=== PATIENT | female | born 1930 | race African-American/Black ===

== ENCOUNTER 2017-07-29 09:53 | Day surgery (SDC) | payer MEDICARE, OTHER ==
--- NOTE | 2017-07-28 22:02 | Pre-Procedure Note/Attestation ---
Pre-Procedure Note/Attestation Complete Prior to Procedure Planned Procedure: right - Removal of cataract and placement of intraocular lens, right eye Procedure Narrative: Removal of cataract and placement of intraocular lens, right eye Indications for Procedure Pre-Operative Diagnosis: Cataract, combined, right eye Attestation I attest that I discussed the nature of the procedure; its benefits; risks and complications; and alternatives (and the risks and benefits of such alternatives ), prior to the procedure, with the patient (or the patient's legal financial services representative). I attest that, if there was a reasonable possibility of needing a blood transfusion, the patient (or the patient's legal financial services representative) was given the [place] Department of Health Services standardized written summary, pursuant to the [employer] Blood Safety Act ([place] Health and Safety Code # 1645, as amended). I attest that I re-evaluated the patient just prior to the surgery and that there has been no change in the patient's H&P, except as documented below: Chang Ramirez MD Jul 28, 2017 22:02
[~2017-07-29] VITALS: Ht 167.6 cm; Wt 77.1 kg
[2017-07-29] VITALS (8 sets, daily range): BP systolic 119–156; BP diastolic 70–79
[~2017-07-29 09:53] MED LIST: BSS 15ml BTL ONE; BSS 500ml btl ONE; Bupivacaine 0.75% 30ml vial INJ ONE; Carbachol 0.01% Op Soln 1.5ml vial ONE; Dexamethasone 4mg/ml vial ONE; EPINEPHrine 1mg/1ml Amp ONE; Fluorescein Strips ONE; Lidocaine 1% MPF 10mg/ml 5ml ONE; Lidocaine 4% Amp ONE; Maxitrol Opth Oint 3.5gm ONE; Povidone-Iodine 5% opth solution ONE; Pred Forte 1% Opth Susp 1ml ONE; Sodium Hyaluronate 10 mg/ml 0.85ml ONE; Tetracaine 0.5% Opth 4ml Soln ONE; Timolol 0.5% Op Soln 2.5ml ONE
[2017-07-29] MEDS ORDERED: DiphenhydrAMINE 50mg/ml Inj ONE (11:30)
[2017-07-29] MEDS ORDERED: VITAMIN B COMP1 EAC2 ORAL (11:37)
[2017-07-29] MEDS ORDERED: DARZALEX100 MG/5 M IV (11:37)
[2017-07-29] MEDS ORDERED: AVALIDE 150-121 EACH ORAL (11:37)
[2017-07-29] MEDS ORDERED: VITAMIN B12-FO1 EAC1 PO (11:37)
[2017-07-29] MEDS ORDERED: ACYCLOVIR400 MG ORAL (11:37)
[2017-07-29] MEDS ORDERED: VITAMIN D400 INTLU ORAL (11:37)
[2017-07-29] MEDS ORDERED: XARELTO20 MG ORAL (11:37)
[2017-07-29] MEDS ORDERED: DEXAMETHASONE4 M1 PO (11:37)
[2017-07-29] MEDS: Akten 3.5% 1ml Btl RIGHT EYE SCH ×3 (12:17→12:35)
[2017-07-29] MEDS: Tropicamide 1% Opth 15ml Soln RIGHT EYE SCH ×3 (12:18→12:34)
[2017-07-29] MEDS: Cyclopentolate 1% Opth Sol 2ml RIGHT EYE SCH ×3 (12:18→12:34)
[2017-07-29] MEDS: Phenylephrine 10% Opth Soln 5ml RIGHT EYE SCH ×3 (12:18→12:34)
[2017-07-29] MEDS: Tobradex Opth Susp 2.5ml RIGHT EYE SCH ×3 (12:18→12:35)
--- NOTE | 2017-07-29 12:27 | Anethesia Preoperative Eval ---
Anesthesia Pre-op PMH/ROS General Date of Evaluation: Jul 29, 2017 Anesthesiologist: [place] ASA Score: ASA 3 Mallampati Score Class I : Soft palate, uvula, fauces, pillars visible Class II: Soft palate, uvula, fauces visible Class III: Soft palate, base of uvula visible Class IV: Only hard plate visible Mallampati Classification: Class III Surgeon: Ashley Diagnosis: Right cataract Surgical Procedure: Right cataract extraction with IOL Anesthesia History: none Family History: no anesthesia problems Allergies: Coded Allergies: BORTEZOMIB (Verified Allergy, Severe, rash all over the body , 07/29/17) PENICILLINS (Verified Allergy, Intermediate, swelling hands and feet , ) CIPROFLOXACIN (Verified Allergy, Unknown, 07/28/17) CLINDAMYCIN (Verified Allergy, Unknown, 07/28/17) SULFA (SULFONAMIDE ANTIBIOTICS) (Verified Allergy, Unknown, unknown , 07/29) Medications: see eMAR Past Medical History Cardiovascular: Reports: HTN, Denies: CAD, VT, valve dz, arrhythmia, other Pulmonary: Denies: asthma, COPD, ROLANDO, other Gastrointestinal/Genitourinary: Denies: GERD, CRI, ESRD, other Neurologic/Psychiatric: Denies: dementia, CVA, depression/anxiety, TIA, other Endocrine: Denies: DM, hypothyroidism, steroids, other HEENT: Denies: cataract (L), cataract (R), glaucoma, [place] (L), [place] (R), other Hematology/Immune: Reports: anemia - chronic, other - multiple myeloma, Denies: DVT, bleeding disorder Musculoskeletal/Integumentary: Denies: OA, RA, DJD, DDD, edema, other PSxH Narrative: T&A, left salphingooophorectomy Anesthesia Pre-op Phys. Exam Physician Exam Last Vital Signs Date Time Temp Pulse Resp B/P (MAP) Pulse Ox O2 Delivery O2 Flow Rate FiO2 07/29/17 10:27 97.9 78 18 120/70 97 Room Air Constitutional: NAD Cardiovascular: RRR Respiratory: CTA Airway Exam Mallampati Score: Class III MO: limited ROM: full Teeth: intact Anesthesia Pre-op A/P Labs see chart Studies Pre-op Studies: EKG - sr Risk Assessment & Plan Assessment: ASA III Plan: MAC Status Change Before Surgery: No Pre-Antibiotics Drug: N/A LAGOS,LEXX M.D. Jul 29, 2017 12:27
[2017-07-29] MEDS ORDERED: Midazolam 2mg/2ml Inj ONE (13:00)
[2017-07-29] MEDS ORDERED: NS Irrig 1000ml ONE (13:00)
[2017-07-29] MEDS ORDERED: fentaNYL 100 mcg/2 mL IV ONE (13:00)
[2017-07-29] MEDS ORDERED: Sterile Water Irrig 1000ml IRRIG ONE (13:00)
--- NOTE | 2017-07-29 13:27 | Immediate Post-Op Evaluation ---
Immediate Post-Op Evalulation Immediate Post-Op Evalulation Procedure: Right cataract extraction with IOL Date of Evaluation: Jul 29, 2017 Time of Evaluation: 14:26 IV Fluids: 600 Blood Products: 0 Estimated Blood Loss: 0 Urinary Output: 0 Blood Pressure Systolic: 131 Blood Pressure Diastolic: 72 Pulse Rate: 83 Respiratory Rate: 16 O2 Sat by Pulse Oximetry: 98 Temperature (Fahrenheit): 97.7 Pain Score (1-10): 0 Nausea: No Vomiting: No Complications 0 Patient Status: awake, reacts, patent, none Hydration Status: adequate Drug: N/A LEXX LAGOS M.D. Jul 29, 2017 13:26
--- NOTE | 2017-07-29 13:27 | 48 Hour Post Anesthesia Eval ---
Post Anesthesia Evaluation Procedure: Right cataract extraction with IOL Date of Evaluation: Jul 29, 2017 Airway: patent Nausea: No Vomiting: No Pain Intensity: 0 Hydration Status: adequate Cardiopulmonary Status: at baseline Mental Status/LOC: patient returned to baseline Post-Anesthesia Complications: 0 Follow-up care needed: ready to discharge LEXX LAGOS M.D. Jul 29, 2017 13:27
[2017-07-29] MEDS ORDERED: LR 1000ml 1,000 ML IVLG SCH (13:30)
[2017-07-29] MEDS ORDERED: DiphenhydrAMINE 50mg/ml Inj IVP PRN (13:30)
[2017-07-29] MEDS ORDERED: Sodium Hyaluronate 10 mg/ml 0.85ml ONE (14:29)
--- NOTE | 2017-07-29 14:29 | Discharge Instructions ---
Discharge Instructions Discharge Instructions Follow Up Orders Pt to wear shield at all times Continue preoperative eye drops Followup tomorrow in Dr Ramirez's office For Congestive Heart Failure Reminder Report to your physician any weight gain of 5 pounds or more in one week. Chang Ramirez MD Jul 29, 2017 14:29
--- NOTE | 2017-07-29 14:32 | Brief Operative Note ---
Immediate Post Operative Note Operative Note Pre-op Diagnosis: Cataract, combined, right eye Miosis, right eye Procedure: phaco pc iol OD use of malyugian ring (7.0) Post-op Diagnosis: cataract, combined, right eye miosis, right eye Surgeon: Bear Ramirez MD Additional Surgeons: none Anesthesiologist: Dr Granger Anesthesia: local, MAC Specimen: none Complications: none Fluids: as noted Estimated Blood Loss: minimal Implant(s) used?: Yes - parish [id number] 22.0 Chang Ramirez MD Jul 29, 2017 14:32
--- NOTE | 2017-07-29 23:45 | Operative Note - Dictated ---
DATE OF OPERATION: 07/29/2017 SURGEON: Chang Ramirez M.D. SKIRT CLIPPER SURGEON: None. ANESTHESIOLOGIST: Dr. Granger. ANESTHESIA: Local/standby/monitored anesthesia care. PREOPERATIVE DIAGNOSES: 1. Cataract, combined, right eye. 2. Miosis, right eye. POSTOPERATIVE DIAGNOSES: 1. Cataract, combined, right eye. 2. Miosis, right eye. PROCEDURE: 1. Phacoemulsification of cataract, right eye. 2. Use of Malyugin ring, right eye (7.0 mm). SPECIMENS: None. COMPLICATIONS: None. INDICATIONS FOR SURGERY: The patient has had the painless progressive decrease in visual acuity in the right eye secondary to cataract. The patient understands the risks of surgery including infection, bleeding, need for further surgery, loss of vision, no improvement in vision, loss of the eye, loss of life, glaucoma, and retinal detachment, understands these risks and elects to proceed with surgery. FINDINGS: The patient had a +2 to 3 nuclear sclerotic cataract as well as a +2 to 3 anterior subcortical cataract. In addition, she had miosis that necessitated using Malyugin ring in order to get better exposure to do the surgery. OPERATIVE NOTE: After informed consent was obtained, the patient was brought into the operating room and placed in a supine position. Cardiac and respiratory monitors were attached. A time-out was performed and all criteria were met and everyone in the room agreed. The right eye was then draped and prepped in sterile manner for ocular surgery. A lid speculum was placed in the eye. A 1% lidocaine preservative-free was injected at the approximate 9:30 limbus. A conjunctival peritomy from approximately 9 o'clock to 10 o'clock was made and dissected posteriorly. Hemostasis was maintained with bipolar cautery. A 2.6 mm limbal incision was made centered approximately 9:30 and dissected anteriorly. A paracentesis was made at approximately 12 o'clock and Shugarcaine was injected into the anterior chamber followed by Alexander. The anterior chamber was then entered using a 2.6 mm keratome. It was noted at this point that the pupil was still small. So, a 7.0 millimeter Malyugin ring was placed into the anterior chamber and hooked onto the pupillary margin on 4 quadrants. An anterior capsulorrhexis was then performed. Hydrodissection and hydrodelineation of the lens was then performed. The lens was then phacoemulsified using divide and conquer four-quadrant technique. Residual cortical material was then aspirated. Healon was placed in the anterior chamber and capsular bag. The lens was taken from its package, placed into the cartridge and the tip of the cartridge was placed through the limbal incision. The lens was injected into the capsular bag and centered nicely and noted to be in the 180-degree meridian. The Malyugin ring was then removed. The Healon was then aspirated from the anterior chamber and capsular bag. The lens was noted to be again in the 180-degree meridian and the capsule in both the haptics were visually inspected in the capsular bag. The one 10-0 nylon interrupted suture was then placed through the limbal incision. The knot was rotated and buried. Care was taken during the entire procedure not to touch the endothelium. The wounds were checked and found to be watertight. The conjunctiva was closed with forceps cautery. A superior rectus stay suture, which had been placed previously at the beginning of the case through the superior rectus muscle was then removed. The lid speculum and drapes were removed from the eye and drops of TobraDex and Pred Forte were applied to the eye followed by Maxitrol ointment and a shield. The patient tolerated the procedure well and left the operating room in awake and alert in stable condition. Chang Ramirez M.D. DR: MARSHA JOB#: [id number] CC:
--- NOTE | 2017-07-30 | Pre-op HX & Phy Repo 2 SIG ---
DATE OF ADMISSION: 07/29/2017 NOTE: "POOR AUDIO QUALITY" PRESURGICAL INTERNAL MEDICINE HISTORY AND PHYSICAL LOCATION: The patient is an 86-year-old female who was seen in the [facility] Outpatient Department. REASON FOR EVALUATION: I was asked by Dr. Chang Ramirez to see this 86-year-old female who is going for elective surgery on the right eye. The patient has cataract in the right eye. Please see full ophthalmology history and physical by Dr. Chang Ramirez. The patient was evaluated. Chart was reviewed. PAST MEDICAL HISTORY/REVIEW OF SYSTEMS: Remarkable for history of hypertension. Denies history of stroke, seizures, or heart attack. No chest pain or palpitation. Denies history of respiratory problem, asthma, or bronchitis. The patient has history of multiple myeloma and receives chemotherapy treatment by Dr. Val haas. The patient was found to have history of anemia and renal insufficiency currently secondary to multiple myeloma. Denies history of heartburn, GI bleeding, ulcer disease, or colitis. No history of liver problem or hepatitis. Denies history of thyroid problem or diabetes mellitus. No history of bronchitis. Denies recent weight loss or fevers. MEDICATIONS: , vitamin B12, vitamin B6, vitamin B complex, vitamin D, Xarelto, . ALLERGIES: Penicillin, sulfa, questionable about chemotherapy at the time of my dictation. HABITS: The patient smoked for 25 years between the age of 18 and 43. Denied alcohol or street drug use. FAMILY HISTORY: Mother at age of 100 of old age and father at age 75, cause unknown. PHYSICAL EXAMINATION: GENERAL: The patient is alert, well-developed, and well-nourished female in her 80s, in no acute distress. VITAL SIGNS: Blood pressure 120/70, temperature 97.9, pulse 78 and regular, and O2 saturation on room air 97%. HEENT: Head normocephalic, atraumatic. Ears clear, no discharge. Mouth, clear and moist. Permanent dental implant. Eyes, full description per Dr. Chang Ramirez. SKIN: Warm. Pale. No rashes or ulcers. LYMPH NODES: Not enlarged. NECK: Supple. No jugular venous distention. Carotid artery +2. Trachea is midline. CHEST: Mild kyphosis. LUNGS: Clear to auscultation and percussion. No rales or rhonchi. HEART: Sinus rhythm. No ectopy. No murmur. No S3 or S4. ABDOMEN: Soft. No palpable mass. No rebound. EXTREMITIES: No deformity. No asymmetry. No varicose veins or calf tenderness. Peripheral pulse equal bilateral. GENITOURINARY TRACT: Normal for gender 08:02. CVA nontender. NERVOUS SYSTEM: No asymmetry. No tremor. No nystagmus. Cranial nerves II through XII intact. LABORATORY AND DIAGNOSTIC DATA: ECG, sinus rhythm, rate 81 per minute, nonspecific T-wave abnormality, otherwise normal ECG. The patient did not eat or drink from midnight. Laboratory work pending. IMPRESSION: 1. Cataract, right eye. 2. Hypertension, controlled. 3. Multiple myeloma. 4. Chronic anemia secondary to multiple myeloma. 5. Chronic renal insufficiency secondary to multiple myeloma. PLAN: Cataract extraction, right eye with intraocular lens implant per Dr. Chang Ramirez. CONCLUSION: The patient is an 86-year-old female who has multiple medical problems including multiple myeloma, hypertension which is controlled, anemia, and renal insufficiency secondary to multiple myeloma. The patient's vital signs stable. ECG, nonspecific T-wave abnormality. The patient is in sinus rhythm. The patient did not eat or drink from last night. The patient's condition optimized for surgery. Thank you very much, Dr. Ramirez, for privilege to participate in presurgical care of this interesting patient. Latonya Lentz M.D. DR: JOANNE JOB#: [id number] CC: Chang Ramirez M.D.; Fax#: [phone] LATONYA LENTZ M.D. ; FAX#: [phone]
--- NOTE | 2017-08-10 14:02 | Cardiology Report ---
APPROVED REPORT EKG Measurement Heart [id number] ND [id number] Normal sinus rhythm Nonspecific T wave abnormality Abnormal ECG
== END 2017-07-29 15:15 | disposition home or self-care (01) ==
LOC: SUR 09:53
DX: H25.11 Age-related nuclear cataract, right eye (principal); H25.011 Cortical age-related cataract, right eye; H57.03 Miosis; Z79.01 Long term (current) use of anticoagulants; Z87.891 Personal history of nicotine dependence; Z88.0 Allergy status to penicillin; Z88.2 Allergy status to sulfonamides; I10 Essential (primary) hypertension; C90.00 Multiple myeloma not having achieved remission; I12.9 Hypertensive chronic kidney disease with stage 1 through stage 4 chronic kidney disease, or unspecified chronic kidney disease; N18.9 Chronic kidney disease, unspecified; D64.89 Other specified anemias; Z88.8 Allergy status to other drugs, medicaments and biological substances; Z90.721 Acquired absence of ovaries, unilateral
CPT/HCPCS: 66982; 93005; J0171; J1100; J1200; J2250; J3010; V2632; 94003; 94150

== ENCOUNTER 2017-09-23 10:15 | Day surgery (SDC) | payer MEDICARE, OTHER ==
[2017-09-23] VITALS (8 sets, daily range): BP systolic 101–138; BP diastolic 59–71
[~2017-09-23] VITALS: Ht 168.9 cm; Wt 77.1 kg
--- NOTE | 2017-09-23 07:24 | Pre-Procedure Note/Attestation ---
Pre-Procedure Note/Attestation Complete Prior to Procedure Planned Procedure: left - Removal of cataract and placement of intraocular lens , left eye Procedure Narrative: Removal of cataract and placement of intraocular lens, left eye Indications for Procedure Pre-Operative Diagnosis: Cataract, combined, left eye Attestation I attest that I discussed the nature of the procedure; its benefits; risks and complications; and alternatives (and the risks and benefits of such alternatives ), prior to the procedure, with the patient (or the patient's legal sales representative [employer]). I attest that, if there was a reasonable possibility of needing a blood transfusion, the patient (or the patient's legal sales representative [employer]) was given the [place] Department of Health Services standardized written summary, pursuant to the [employer] Blood Safety Act ([place] Health and Safety Code # 1645, as amended). I attest that I re-evaluated the patient just prior to the surgery and that there has been no change in the patient's H&P, except as documented below: Chang Ramirez MD Sep 23, 2017 07:23
[~2017-09-23 10:15] MED LIST changes: +ACYCLOVIR400 MG ORAL; +AVALIDE 150-121 EACH ORAL; -BSS 15ml BTL ONE; -BSS 500ml btl ONE; -Bupivacaine 0.75% 30ml vial INJ ONE; -Carbachol 0.01% Op Soln 1.5ml vial ONE; +DARZALEX100 MG/5 M IV; +DEXAMETHASONE4 M1 PO; -Dexamethasone 4mg/ml vial ONE; -EPINEPHrine 1mg/1ml Amp ONE; -Fluorescein Strips ONE; -Lidocaine 1% MPF 10mg/ml 5ml ONE; -Lidocaine 4% Amp ONE; -Maxitrol Opth Oint 3.5gm ONE; -Povidone-Iodine 5% opth solution ONE; -Pred Forte 1% Opth Susp 1ml ONE; -Sodium Hyaluronate 10 mg/ml 0.85ml ONE; -Tetracaine 0.5% Opth 4ml Soln ONE; -Timolol 0.5% Op Soln 2.5ml ONE; +Tobradex Opth Susp 2.5ml LEFT EYE ONE; +VITAMIN B COMP1 EAC2 ORAL; +VITAMIN B12-FO1 EAC1 PO; +VITAMIN D400 INTLU ORAL; +XARELTO20 MG ORAL
[2017-09-23] MEDS ORDERED: LR 1000ml ONE (10:16)
[2017-09-23] MEDS ORDERED: Midazolam 2mg/2ml Inj ONE (10:16)
[2017-09-23] MEDS ORDERED: fentaNYL 100 mcg/2 mL IV ONE (10:16)
[2017-09-23] MEDS ORDERED: Tobradex Opth Susp 2.5ml ONE (10:45)
[2017-09-23] MEDS ORDERED: Phenylephrine 10% Opth Soln 5ml ONE (10:45)
[2017-09-23] MEDS ORDERED: Tropicamide 1% Opth 15ml Soln ONE (10:46)
[2017-09-23] MEDS ORDERED: Akten 3.5% 1ml Btl ONE (10:46)
[2017-09-23] MEDS ORDERED: Cyclopentolate 1% Opth Sol 2ml ONE (10:46)
[2017-09-23] MEDS: Phenylephrine 10% Opth Soln 5ml LEFT EYE SCH ×3 (10:56→11:19)
[2017-09-23] MEDS: Tropicamide 1% Opth 15ml Soln LEFT EYE SCH ×3 (10:56→11:18)
[2017-09-23] MEDS: Cyclopentolate 1% Opth Sol 2ml LEFT EYE SCH ×3 (10:56→11:18)
[2017-09-23] MEDS: Akten 3.5% 1ml Btl LEFT EYE SCH ×3 (10:57→11:18)
--- NOTE | 2017-09-23 13:42 | Discharge Instructions ---
Discharge Instructions Discharge Instructions Follow Up Orders Wear shield at all times except to place eye drops Continue pre op eye drops Followup tomorrow in Dr Ramirez's office at 2:00 For Congestive Heart Failure Reminder Report to your physician any weight gain of 5 pounds or more in one week. Chang Ramirez MD Sep 23, 2017 13:41
--- NOTE | 2017-09-23 15:02 | Brief Operative Note ---
Immediate Post Operative Note Operative Note Pre-op Diagnosis: Cataract, combined, left eye Procedure: Phaco PC IOL, OS Post-op Diagnosis: same as pre-op plus - miosis, OS Surgeon: Bear Ramirez MD Platinumsmith: none Anesthesiologist: Dr Brandt Anesthesia: local, MAC Specimen: none Complications: none Fluids: as noted Implant(s) used?: Yes - [place] [id number] 24.0 Chang Ramirez MD Sep 23, 2017 15:01
[2017-09-23] MEDS ORDERED: Lidocaine 2% MPF 5ml Vial INJ ONE (15:15)
[2017-09-23] MEDS ORDERED: EPINEPHrine 1mg/1ml Amp ONE (15:15)
[2017-09-23] MEDS ORDERED: Tetracaine 0.5% Opth 4ml Soln ONE (15:15)
[2017-09-23] MEDS ORDERED: BSS 500ml btl ONE (15:15)
[2017-09-23] MEDS ORDERED: Maxitrol Opth Oint 3.5gm ONE (15:15)
[2017-09-23] MEDS ORDERED: Pred Forte 1% Opth Susp 1ml ONE (15:15)
[2017-09-23] MEDS ORDERED: Lidocaine 1% MPF 10mg/ml 5ml ONE (15:15)
[2017-09-23] MEDS ORDERED: Dexamethasone 4mg/ml vial ONE (15:15)
[2017-09-23] MEDS ORDERED: Povidone-Iodine 5% opth solution ONE (15:16)
[2017-09-23] MEDS ORDERED: BSS 15ml BTL ONE (15:16)
[2017-09-23] MEDS ORDERED: Sodium Hyaluronate 10 mg/ml 0.85ml ONE (15:19)
--- NOTE | 2017-09-24 01:16 | Operative Note - Dictated ---
DATE OF OPERATION: 09/23/2017 SURGEON: Chang Ramirez M.D. WIRING MECHANIC SURGEON: None. ANESTHESIOLOGIST: Dr. Nassar. ANESTHESIA: Local/standby/monitored anesthesia care. PREOPERATIVE DIAGNOSES: 1. Cataract, combined, left eye. 2. Miosis, left eye. PROCEDURES: 1. Phacoemulsification of cataract, left eye. 2. Placement of posterior-chamber intraocular lens, left eye. 3. Use of Malyugin ring, 7.0 mm, left eye. SPECIMENS: None. COMPLICATIONS: None. INDICATIONS FOR SURGERY: The patient has had the painless progressive decrease in visual acuity in left eye secondary to cataract. The patient understands the risks of surgery including infection, bleeding, need for further surgery, loss of vision, no improvement in vision, loss of the eye, loss of life, glaucoma, retinal detachment, and understands these risks and elects to proceed with surgery. FINDINGS: The patient had a +3 nuclear sclerotic cataract as well as a +2 cortical cataract. In addition, the patient had miosis with the pupil measuring approximately 4 mm. OPERATIVE NOTE: After informed consent was obtained, the patient was brought into the operating room and placed in supine position. Cardiac and respiratory monitors were attached. A time-out was performed and all criteria were met and everyone in the room agreed. The left eye was draped and prepped in sterile manner for ocular surgery. A lid speculum was placed in the eye. A 1% lidocaine preservative-free was injected at approximately 2 o'clock limbus. A conjunctival peritomy from approximately 1:30 to 2:30 was made and dissected posteriorly. Hemostasis was maintained with bipolar cautery. A 2.6 mm limbal incision was made centered at approximately 2 o'clock and dissected anteriorly. A paracentesis was made at approximately 4:30 and Shugarcaine was injected into the anterior chamber followed by Healon. The anterior chamber was then entered using a 2.6 mm keratome through the limbal incision. The 7.0 mm Malyugin ring was injected into the anterior chamber and hooked onto the pupillary margin at 4 points. An anterior capsulorrhexis was then performed. Hydrodissection and hydrodelineation of the lens was then performed. The lens was then phacoemulsified using [id number] four-quadrant technique. Residual cortical material was then aspirated. Healon was injected into the anterior chamber and capsular bag. The preloaded lens injector tip was placed through the limbal incision. The lens was injected into the capsular bag and centered nicely with a Sinskey hook such as the optic and both haptics were in the capsular bag and was aligned at 180 degrees. The Malyugin ring was then removed. The Healon was aspirated from the anterior chamber and capsular bag. The limbal wound and paracentesis wound was hydrated and closed. One 10-0 nylon interrupted suture was placed through the limbal incision, the knot was rotated and buried. Care was taken during the entire procedure not to touch the endothelium. The wounds were checked and found to be watertight. The conjunctiva was then closed with forceps cautery. One drop of Betadine was placed onto the ocular surface followed by moxifloxacin, then Pred Forte, then Maxitrol ointment, and then a shield. The patient tolerated the procedure well and left the operating room awake and alert in stable condition. Note, without using the Malyugin ring, this procedure would not have been done safely as the pupil was too small. Chang Ramirez M.D. DR: MARSHA JOB#: [id number] CC:
== END 2017-09-23 14:45 | disposition home or self-care (01) ==
LOC: SUR 10:15
DX: H25.12 Age-related nuclear cataract, left eye (principal); H25.012 Cortical age-related cataract, left eye; H57.03 Miosis; I12.9 Hypertensive chronic kidney disease with stage 1 through stage 4 chronic kidney disease, or unspecified chronic kidney disease; N18.9 Chronic kidney disease, unspecified; K21.9 Gastro-esophageal reflux disease without esophagitis; M81.0 Age-related osteoporosis without current pathological fracture; M85.80 Other specified disorders of bone density and structure, unspecified site; Z88.0 Allergy status to penicillin; Z88.2 Allergy status to sulfonamides; Z90.710 Acquired absence of both cervix and uterus; Z90.721 Acquired absence of ovaries, unilateral; Z87.891 Personal history of nicotine dependence; Z86.711 Personal history of pulmonary embolism
CPT/HCPCS: 66982; J0171; J1100; J2250; J3010; J7120; V2632; 94003; 94150